=== PATIENT | male | born 1975 | race American Indian/Alaskan Native ===

== ENCOUNTER 2020-03-15 10:49 | Emergency (ER) | payer BC ==
--- NOTE | 2020-03-15 11:15 | Emergency Department Report ---
ED General Adult HPI - General Chief complaint: Hypoglycemia Stated complaint: LOW BLOOD SUGAR Time Seen by Provider: 03/15/20 11:11 Source: patient Mode of arrival: Ambulatory Limitations: No Limitations - History of Present Illness Initial comments: PCP ELAINE RX METFORMIN NIFEDIPINE- MISSED DOSE YESTERDAY HCTZ 44 YO AA MALES COMES TO ER P FEELING JITTERY AT HOME. HE IS DIABETIC HIS BS WAS 154; HE THEN GOT ANXIOUS AND CAME TO ER. NO CP. NO SOB. AMBULATORY AND NON TOXIC BP NOTED INC NO FOCAL DEFICIT HR 114--- REPEAT AND ON 12 LEAD IN 90'S MISSED [place] CHANNEL DIANE YESTERDAY PMH DM HTN NO CAD/CVA -: Sudden Associated Symptoms: denies other symptoms Treatments Prior to Arrival: none - Related Data Allergies Allergy/AdvReac Type Severity Reaction Status Date / Time No Known Allergies Allergy Unverified 03/15/20 10:51 ED Review of Systems ROS: Stated complaint: LOW BLOOD SUGAR Other details as noted in HPI Comment: All other systems reviewed and negative ED Past Medical Hx - Past Medical History Previous Medical History?: Yes Hx Hypertension: Yes Hx CVA: No Hx Heart Attack/AMI: No Hx Congestive Heart Failure: No Hx Diabetes: Yes - Surgical History Past Surgical History?: No - Family History Family history: other (MOM ALIVE BUT HAS CKD/ DAD DEC ESRD) - Social History Smoking Status: Never Smoker Substance Use Type: None ED Physical Exam - General Limitations: No Limitations General appearance: alert, in no apparent distress - Head Head exam: Present: atraumatic, normocephalic - Eye Eye exam: Present: normal appearance - ENT ENT exam: Present: mucous membranes moist - Neck Neck exam: Present: normal inspection - Respiratory Respiratory exam: Present: normal lung sounds bilaterally. Absent: respiratory distress - Cardiovascular Cardiovascular Exam: Present: regular rate, normal rhythm. Absent: systolic murmur, diastolic murmur, rubs, gallop - GI/Abdominal GI/Abdominal exam: Present: soft, normal bowel sounds - Rectal Rectal exam: Present: deferred - Extremities Exam Extremities exam: Present: normal inspection - Back Exam Back exam: Present: normal inspection - Neurological Exam Neurological exam: Present: alert, oriented X3 - Psychiatric Psychiatric exam: Present: normal affect, normal mood - Skin Skin exam: Present: warm, dry, intact, normal color. Absent: rash ED Course Vital Signs 03/15/20 03/15/20 10:51 12:08 Temperature 98.4 F Pulse Rate 114 H 111 H Respiratory 20 Rate Blood Pressure 165/111 142/104 O2 Sat by Pulse 99 Oximetry ED Medical Decision Making - Lab Data Result diagrams: 03/15/20 11:25 03/15/20 11:25 - EKG Data -: EKG Interpreted by Me EKG shows normal: sinus rhythm Rate: normal - EKG Data Interpretation: no acute changes - Radiology Data Radiology results: report reviewed, image reviewed - Medical Decision Making Labs 03/15/20 03/15/20 03/15/20 11:08 11:25 11:25 WBC 5.7 RBC 5.90 H Hgb 14.1 Hct 44.3 MCV 75 L MCH 24 L MCHC 32 RDW 15.0 Plt Count 200 Lymph % (Auto) 20.9 Hudson % (Auto) 10.4 H Eos % (Auto) 0.4 Baso % (Auto) 0.8 Lymph # 1.2 Hudson # 0.6 Eos # 0.0 Baso # 0.0 Seg Neutrophils % 67.5 Seg Neutrophils # 3.9 Sodium 137 Potassium 3.6 Chloride 98.2 Carbon Dioxide 23 Anion Gap 19 BUN 9 Creatinine 1.0 Estimated GFR > 60 BUN/Creatinine Ratio 9 Glucose 155 H POC Glucose 148 H Calcium 9.9 Total Bilirubin 0.50 AST 17 ALT 16 Alkaline Phosphatase 89 Troponin T < 0.010 Total Protein 8.1 Albumin 4.3 Albumin/Globulin Ratio 1.1 TSH 03/15/20 11:25 WBC RBC Hgb Hct MCV MCH MCHC RDW Plt Count Lymph % (Auto) Hudson % (Auto) Eos % (Auto) Baso % (Auto) Lymph # Hudson # Eos # Baso # Seg Neutrophils % Seg Neutrophils # Sodium Potassium Chloride Carbon Dioxide Anion Gap BUN Creatinine Estimated GFR BUN/Creatinine Ratio Glucose POC Glucose Calcium Total Bilirubin AST ALT Alkaline Phosphatase Troponin T Total Protein Albumin Albumin/Globulin Ratio TSH 0.997 Vital Signs 03/15/20 03/15/20 10:51 12:08 Temperature 98.4 F Pulse Rate 114 H 111 H Respiratory 20 Rate Blood Pressure 165/111 142/104 O2 Sat by Pulse 99 Oximetry HR ON 12 LEAD 96 NAP XRAY NEG LABS NOTED TROP NEG TSH NORMAL PT MISSED DOSE OF CA CHANNEL DIANE YESTERDAY EDUCATED ON TAKING INSTRUCTED BS RECHECKED AND OK IN ER. MEDICATED FOR BP WITH CLONIDINE LONG DISCUSSION WITH PT- HE WILL TAKE RX INSTRUCTED AND FOLLOW UP WITH PCP THIS WEEK. Lab Results 03/15/20 03/15/20 03/15/20 Range/Units 11:08 11:25 11:25 WBC 5.7 (4.5-11.0) K/mm3 RBC 5.90 H (3.65-5.03) M/mm3 Hgb 14.1 (11.8-15.2) gm/dl Hct 44.3 (35.5-45.6) % MCV 75 L (84-94) fl MCH 24 L (28-32) pg MCHC 32 (32-34) % RDW 15.0 (13.2-15.2) % Plt Count 200 (140-440) K/mm3 Lymph % (Auto) 20.9 (13.4-35.0) % Hudson % (Auto) 10.4 H (0.0-7.3) % Eos % (Auto) 0.4 (0.0-4.3) % Baso % (Auto) 0.8 (0.0-1.8) % Lymph # 1.2 (1.2-5.4) K/mm3 Hudson # 0.6 (0.0-0.8) K/mm3 Eos # 0.0 (0.0-0.4) K/mm3 Baso # 0.0 (0.0-0.1) K/mm3 Seg Neutrophils % 67.5 (40.0-70.0) % Seg Neutrophils # 3.9 (1.8-7.7) K/mm3 Sodium 137 (137-145) mmol/L Potassium 3.6 (3.6-5.0) mmol/L Chloride 98.2 (98-107) mmol/L Carbon Dioxide 23 (22-30) mmol/L Anion Gap 19 mmol/L BUN 9 (9-20) mg/dL Creatinine 1.0 (0.8-1.5) mg/dL Estimated GFR > 60 ml/min BUN/Creatinine Ratio 9 % Glucose 155 H (75-100) mg/dL POC Glucose 148 H (70-105) Calcium 9.9 (8.4-10.2) mg/dL Total Bilirubin 0.50 (0.1-1.2) mg/dL AST 17 (5-40) units/L ALT 16 (7-56) units/L Alkaline Phosphatase 89 (35-129) units/L Troponin T < 0.010 (0.00-0.029) ng/mL Total Protein 8.1 (6.3-8.2) g/dL Albumin 4.3 (3.9-5) g/dL Albumin/Globulin Ratio 1.1 % TSH (0.270-4.200) mlU/mL 03/15/20 Range/Units 11:25 WBC (4.5-11.0) K/mm3 RBC (3.65-5.03) M/mm3 Hgb (11.8-15.2) gm/dl Hct (35.5-45.6) % MCV (84-94) fl MCH (28-32) pg MCHC (32-34) % RDW (13.2-15.2) % Plt Count (140-440) K/mm3 Lymph % (Auto) (13.4-35.0) % Hudson % (Auto) (0.0-7.3) % Eos % (Auto) (0.0-4.3) % Baso % (Auto) (0.0-1.8) % Lymph # (1.2-5.4) K/mm3 Hudson # (0.0-0.8) K/mm3 Eos # (0.0-0.4) K/mm3 Baso # (0.0-0.1) K/mm3 Seg Neutrophils % (40.0-70.0) % Seg Neutrophils # (1.8-7.7) K/mm3 Sodium (137-145) mmol/L Potassium (3.6-5.0) mmol/L Chloride (98-107) mmol/L Carbon Dioxide (22-30) mmol/L Anion Gap mmol/L BUN (9-20) mg/dL Creatinine (0.8-1.5) mg/dL Estimated GFR ml/min BUN/Creatinine Ratio % Glucose (75-100) mg/dL POC Glucose (70-105) Calcium (8.4-10.2) mg/dL Total Bilirubin (0.1-1.2) mg/dL AST (5-40) units/L ALT (7-56) units/L Alkaline Phosphatase (35-129) units/L Troponin T (0.00-0.029) ng/mL Total Protein (6.3-8.2) g/dL Albumin (3.9-5) g/dL Albumin/Globulin Ratio % TSH 0.997 (0.270-4.200) mlU/mL - Differential Diagnosis RO HYPOGLYCEMIA; HTN URGENCY/EMERGENCY/ ACS/ TIA/CVA Critical care attestation.: If time is entered above; I have spent that time in minutes in the direct care of this critically ill patient, excluding procedure time. ED Disposition Clinical Impression: Elevated blood pressure reading, History of diabetes mellitus, Non-adherence to medical treatment Disposition: DC-01 TO HOME OR SELFCARE Is pt being admited?: No Does the pt Need Aspirin: No Condition: Stable Additional Instructions: FOLLOW UP WITH PCP THIS WEEK DIABETIC DIET CONTINUE HOME MEDS FOLLOW BLOOD SUGARS ACTIVITY TOLERATED Time of Disposition: 12:47
[2020-03-15] MEDS ORDERED: cloNIDine 0.2 MG TAB PO ONE (11:25)
--- NOTE | 2020-03-15 11:56 | XRay Report ---
CHEST 2 VIEWS INDICATION: tachycardia/ dizzy. COMPARISON: None FINDINGS: Support devices: None. Heart: Within normal limits. Lungs/pleura: No acute air space or interstitial disease. No pneumothorax. Additional findings: None. IMPRESSION: No acute findings. Signer Name: Robin Buckner Jr, MD Signed: 03/15/2020 11:52 AM Workstation Name: [id number]
[2020-03-15 12:04] LABS: Basophils % (Auto) 0.8 % (0.0-1.8); Eosinophils % (Auto) 0.4 % (0.0-4.3); Hematocrit 44.3 % (35.5-45.6); Hemoglobin 14.1 gm/dl (11.8-15.2); Lymphocytes # (Auto) 1.2 K/mm3 (1.2-5.4); Lymphocytes % (Auto) 20.9 % (13.4-35.0); Mean Corpuscular HGB Conc 32 % (32-34); Mean Corpuscular Volume 75 fl (84-94); Monocytes # (Auto) 0.6 K/mm3 (0.0-0.8); Monocytes % (Auto) 10.4 % (0.0-7.3); Platelet Count 200 K/mm3 (140-440)
[2020-03-15 12:29] LABS: Alanine Aminotransferase 16 units/L (7-56); Albumin 4.3 g/dL (3.9-5); BUN/Creatinine Ratio 9; Blood Urea Nitrogen 9 mg/dL (9-20); Calcium 9.9 mg/dL (8.4-10.2); Hemolysis Index 8
[2020-03-15 12:49] VITALS: BP 144/86
== END 2020-03-15 14:49 ==
LOC: ED 10:49
DX: E11.65 Type 2 diabetes mellitus with hyperglycemia (principal); R03.0 Elevated blood-pressure reading, without diagnosis of hypertension; I10 Essential (primary) hypertension; Z91.19 Patient's noncompliance with other medical treatment and regimen
CPT/HCPCS: 36415; 71046; 80053; 82962; 84443; 84484; 85025